=== PATIENT | female | born 1960 | race Caucasian/White ===

== ENCOUNTER 2018-09-27 10:42 | Outpatient (CLI) | payer BC ==
--- NOTE | 2018-09-27 11:21 | CT ---
EXAM: CT Pulmonary Lung Scan PROVIDED CLINICAL HISTORY: Nicotine dependence. Tobacco abuse. Smoking history for 42 years. History of COPD and asthma. COMPARISON: None FINDINGS: A 6 mm pulmonary nodule is seen at the posterior aspect right lower lobe (image 189, series 2). There are calcified granulomata seen within the left upper lobe. An approximately 1-2 mm nodular density is seen at the posterior aspect left lower lobe (image 165, series 3). This is too small to f urther characterize. A few tiny peripheral nodular densities measuring up to 3 mm are seen within the anterolateral right upper lobe. Linear scarring is seen in the lingula. Postsurgical changes related to CABG are noted. Vascular calcifications are seen at the origin of the great vessels as well as in the aortic arch and proximal abdominal aorta. Lack of intravenous contrast limits evaluation of the mediastinal structures, but no enlarged lymph n odes are seen. A single calcification is seen in each lobe of the thyroid gland. Limited visualized upper abdomen demonstrates grossly normal nonenhanced CT appearance. Mild degenerative changes are seen in the spine. IMPRESSION: 1. Lung RADS category 3, approximately 6 mm pulmonary nodule right lower lobe. Six-month follow-up lo w-dose CT scan of thorax is recommended. 2. Category S-no additional findings are seen which require further evaluation or follow-up. 3. Evidence of prior granulomatous disease.
== END 2018-09-27 10:43 | disposition home or self-care (01) ==
LOC: CT 10:42
PROVIDERS: ATTEND Family Medicine
DX: Z12.2 Encounter for screening for malignant neoplasm of respiratory organs (principal); F17.210 Nicotine dependence, cigarettes, uncomplicated; R91.1 Solitary pulmonary nodule
CPT/HCPCS: G0297

== ENCOUNTER 2019-04-20 08:40 | Outpatient (CLI) | payer BC ==
--- NOTE | 2019-04-20 09:35 | CT ---
CT pulmonary lung scan without IV contrast INDICATION: Lung cancer screening protocol; history of smoking for 40 posterior; current smoker with history of bypass COMPARISON: Prior CT lung cancer screening evaluation dated 09/27/2018 FINDINGS: LUNGS: Nodules\mass: No suspicious nodule demonstrated. Previously seen groundglass pulmonary nodule in the right lower lobe has more of a linear appearance on the coronal images is most consistent with scar. No suspicious pulmonary nodules evident. There is calcified granuloma in the lingula. Emphysema: Moderate emphysema Additional findings: There is postsurgical change of a prior CABG. There are vascular calcifications involving the aorta and coronary arteries. Mediastinum: No lymphadenopathy. Upper abdomen: There is a small hiatal hernia. Osseous structures: No acute fracture or subluxation demonstrated.. There is scattered degenerative a nd osteoarthritic change present. IMPRESSION: Lung-RADS Category 2: Benign- Continue annual screening with LDCT in 12 months Category S: Moderate emphysema. Coronary artery disease Category C: Not applicable.
== END 2019-04-20 08:41 | disposition home or self-care (01) ==
LOC: CT 08:40
PROVIDERS: ATTEND Family Medicine
DX: R91.1 Solitary pulmonary nodule (principal); Z72.0 Tobacco use; J43.9 Emphysema, unspecified; I25.10 Atherosclerotic heart disease of native coronary artery without angina pectoris
CPT/HCPCS: 36415; 80053; 81001; 82550; 83735; 84443; G0297

== ENCOUNTER 2020-05-14 12:46 | Outpatient (CLI) | payer BC ==
--- NOTE | 2020-05-14 15:25 | CT ---
CT LOW DOES LUNG SCAN: 05/14/20 HISTORY: Smoking history, history of nicotine dependence. COMPARISON: 04/20 and 09/27/18 exams. There has been development of some linear change within the right upper lobe more prominent than seen on the previous studies, probably related to some scarring or atelectasis. The tiny vague 5 mm nodul ar area seen within the right lower lobe, axial image 114 is stable. There is some minimal somewhat d iffuse ground glass opacities seen in the right lung. There are changes suggesting an element of cent rilobular emphysema. Tiny 2 to 3 mm left lower lobe nodular density, image 101 is stable. Small hiatal hernia is noted. Postop sternotomy changes are present. IMPRESSION: Lung RADS category 2, benign appearance for behavior. Annual follow-up exam is recommended. POS: [facility]
== END 2020-05-14 12:47 | disposition home or self-care (01) ==
LOC: BICCT 12:46
PROVIDERS: ATTEND Physician Assistant
DX: Z12.2 Encounter for screening for malignant neoplasm of respiratory organs (principal); F17.210 Nicotine dependence, cigarettes, uncomplicated
CPT/HCPCS: 36415; 80053; 80061; 81001; 84439; 84443; 85025; G0297